=== PATIENT | female | born 1985 | race Hispanic/Latino ===

== ENCOUNTER 2018-02-16 16:12 | Emergency (ER) | payer SELFPAY ==
[2018-02-16 16:39] VITALS: BP 139/78
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
== END 2018-02-16 19:35 | disposition home or self-care (01) ==
LOC: ED 16:12
DX: S09.90XA Unspecified injury of head, initial encounter (principal); G44.219 Episodic tension-type headache, not intractable; F17.200 Nicotine dependence, unspecified, uncomplicated; Z88.5 Allergy status to narcotic agent; W22.8XXA Striking against or struck by other objects, initial encounter; Y93.89 Activity, other specified; Y99.8 Other external cause status; Y92.89 Other specified places as the place of occurrence of the external cause
CPT/HCPCS: 70450